=== PATIENT | female | born 1950 | race Hispanic/Latino ===

== ENCOUNTER 2024-02-26 11:41 | Emergency (ER) | payer OTHER ==
[~2024-02-26] VITALS: Ht 149.9 cm; Wt 76.2 kg
[2024-02-26 11:57] LABS: BASOPHILS # (AUTO) 0.08 K/uL (0.00-0.20); BASOPHILS % (AUTO) 1.1 % (0.0-5.0); EOSINOPHILS # (AUTO) 0.23 K/uL (0.00-0.70); EOSINOPHILS % (AUTO) 3.1 % (0.0-8.0); HEMATOCRIT 38.5 % (36-48); IMMATURE GRANULOCYTE ABSOLUTE 0.02 K/uL (0-1); LYMPHOCYTES # (AUTO) 2.7 K/uL (1.0-4.8); LYMPHOCYTES % (AUTO) 36.5 % (21.0-51.0); MEAN CORPUSCULAR HEMOGLOBIN 28.5 pg (27.0-33.0); MEAN CORPUSCULAR HGB CONC 32.7 g/dL (32.0-36.0); MEAN CORPUSCULAR VOLUME 87.1 fL (79-99); MONOCYTES # (AUTO) 0.4 K/uL (0.1-1.0); MONOCYTES % (AUTO) 5.1 % (3.0-13.0); NEUTROPHILS # (AUTO) 4.1 K/uL (1.8-7.7); NEUTROPHILS % (AUTO) 53.9 % (40.0-77.0); PLATELET COUNT (AUTO) 390 K/uL (130-400); RED BLOOD CELL COUNT(AUTO) 4.42 MIL/uL (4.00-5.50); RED CELL DISTRIBUTION WIDTH 12.9 % (11.0-15.5); WHITE BLOOD COUNT (AUTO) 7.5 K/uL (4.8-10.8)
[2024-02-26] MEDS ORDERED: dexaMETHasone SOD PHOSPHATE 4 MG/ML 1ML VIAL IM STA (12:18)
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
[2024-02-26 12:22] LABS: CREATININE 1.1 mg/dL (0.5-1.0)
[2024-02-26] MEDS: ketOROlac 30MG VIAL (30MG/ML) IVP ONE (12:55)
[2024-02-26] MEDS: dexaMETHasone SOD PHOSPHATE 4 MG/ML 1ML VIAL IVP STA (12:56)
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
[2024-02-26] MEDS ORDERED: METH4TAB3 PO (13:06)
[2024-02-26 13:54] VITALS: BP 145/73; PULSE 70; RESP 16; TEMP 97.5; O2SAT 98
--- NOTE | 2024-02-27 05:28 | EKG ---
[facility] Test Date: 2024-02-26 Test Time: 11:55:14 Pat Name: MARGARITA DOUGLAS Department: ED Room: Gender: F [employer] Aide: [id number] : 1950 Requested By: MARCELLA NESBITT Order Number: [id number] Reading MD: Lalita Crandall Measurements Intervals Souris Rate: 71 P: 59 TN: 171 QRS: 2 QRSD: 97 T: 136 QT: 425 QTc: 462 Interpretive Statements Sinus rhythm Probable LVH with secondary repol abnrm No previous ECG available for comparison Electronically Signed On 02-27-2024 11:29:06 EMERGENCY MEDCL EMT by Lalita Crandall Please click the below link to view image of tracing.
== END 2024-02-26 13:55 | disposition home or self-care (01) ==
LOC: EDH 11:41
DX: I12.9 Hypertensive chronic kidney disease with stage 1 through stage 4 chronic kidney disease, or unspecified chronic kidney disease (principal); E11.22 Type 2 diabetes mellitus with diabetic chronic kidney disease; N18.30 Chronic kidney disease, stage 3 unspecified; E11.65 Type 2 diabetes mellitus with hyperglycemia; M94.0 Chondrocostal junction syndrome [Tietze]; E78.00 Pure hypercholesterolemia, unspecified; Z88.5 Allergy status to narcotic agent; Z88.8 Allergy status to other drugs, medicaments and biological substances; Z90.49 Acquired absence of other specified parts of digestive tract
CPT/HCPCS: 99285; 96374; 71045; 96375; 84484; 80048; 85025; 36415; 93005; J1100; J1885